=== PATIENT | female | born 1975 | race Hispanic/Latino ===

== ENCOUNTER → 2024-10-17 | Outpatient (CLI) | payer OTHER ==
--- NOTE | 2024-10-17 14:58 | HMCIMG ---
KNEE 3VWS RT HISTORY: Right knee pain COMPARISON: None TECHNIQUE: 3 images of right knee were obtained. FINDINGS: There is no acute displaced fracture or dislocation. Degenerative changes are seen. IMPRESSION: 1. Findings as described above.
== END | disposition home or self-care (01) ==
LOC: RAH 14:09
PROVIDERS: ATTEND Physician Assistant
DX: M17.11 Unilateral primary osteoarthritis, right knee (principal); M25.561 Pain in right knee
CPT/HCPCS: 73562

== ENCOUNTER 2024-12-14 11:31 | Emergency (ER) | payer OTHER, BC ==
[~2024-12-14] VITALS: Ht 165.1 cm; Wt 73.0 kg
--- NOTE | 2024-12-14 11:40 | ERN ---
ED Note History of Present Illness Stated Complaint: SENT BY Chief Complaint: Numbness Time Seen by MD: 11:37 Dictation: PATIENT IS A 49-YEAR-OLD FEMALE COMING IN TODAY WITH COMPLAINTS OF HAVING CHEST PAIN TWO WEEKS AGO THAT DID NOT RADIATE. SHE STATES HE LASTED FOR A DAY OR SO AND THEN IT RESOLVED THEN, STARTING YESTERDAY SHE STARTED HAVING NUMBNESS AND TINGLING TO HER BILATERAL LOWER EXTREMITIES. SHE SAW HER PRIMARY CARE DOCTOR TODAY WHO PERFORMED AN EKG TOLD HER IT WAS NORMAL. ADVISED HER TO COME TO THE EMERGENCY ROOM FOR FURTHER EVALUATION AND TREATMENT NIH IS 0, GAIT IS STEADY TO TRIAGE ROOM NO HEADACHES NO CHEST PAIN NO BACK PAIN NO FEVER NO CHILLS. Allergies: Coded Allergies: Sulfa (Sulfonamide Antibiotics) (Unverified Allergy, Unknown, 12/14/24) Past Medical History History: Not Applicable RN Note Reviewed/Agreed w/PFSH: Yes Review of System Dictation CONSTITUTIONAL: NEGATIVE EXCEPT FOR HPI HEAD/FACE: NEGATIVE EXCEPT FOR HPI EENT: NEGATIVE EXCEPT FOR HPI RESPIRATORY: NEGATIVE EXCEPT FOR HPI GASTROINTESTINAL/ABDOMINAL: NEGATIVE EXCEPT FOR HPI GENITOURINARY: NEGATIVE EXCEPT FOR HPI MUSCULOSKELETAL: NEGATIVE EXCEPT FOR HPI INTEGUMENTARY: NEGATIVE EXCEPT FOR HPI NEUROLOGICAL/PSYCH: NEGATIVE EXCEPT FOR HPI NUMBNESS AND TINGLING TO BILATERAL UPPER AND LOWER EXTREMITIES HEMATOLOGIC/LYMPHATIC: NEGATIVE EXCEPT FOR HPI ALL SYSTEMS NEGATIVE, EXCEPT NOTED ABOVE. 13 POINT REVIEW OF SYSTEMS ASSESSED AND ALL NEGATIVE EXCEPT FOR ABOVE. S Initial Vital Sign VS Vital Signs Date Time Temp Pulse Resp B/P (MAP) Pulse Ox O2 Delivery O2 Flow Rate FiO2 12/14/24 11:37 97.9 91 16 125/87 98 Room Air* 0 21 Physical Exam Dictation VITAL SIGNS REVIEWED GENERAL APPEARANCE: ALERT, ORIENTED X 3, NO ACUTE DISTRESS, WELL DEVELOPED, NOURISHED. PATIENT DENIES PAIN OR HEADACHE HEAD AND FACE: NON-TRAUMATIC. EYES: PERRL, PINK CONJUNCTIVAS, EYELID NO TRAUMA, ANTERIOR CHAMBER WITH ARCUS SENILIS. EARS: PINNAS INTACT AND NO SIGNS OF TRAUMA OR ERYTHEMA EAR CANALS CLEAR AND NO DISCHARGE TM NO ERYTHEMA NOSE: NO DISCHARGE, NO BLEEDING. OROPHARYNX: MOUTH NORMAL, TONGUE PINK, PHARYNX CLEAR,NO ERYTHEMA, TONSILS NO EXUDATES, NO ABSCESSES NOTED, MUCOUS MEMBRANE MOIST NECK: SUPPLE, NON-TENDER, NO THYROMEGALY, NO MASSES, NO JVD, NO BRUITS BREAST:DEFERRED CHEST:NO TENDERNESS, NO CREPITUS, NO PARADOXICAL MOVEMENT, NO RETRACTIONS LUNGS:CLEAR, WELL-VENTILATED, SYMMETRIC, NO RALES, NO WHEEZING, NO RHONCHI, NO STRIDOR, GOOD BREATH SOUNDS BILATERALLY HEART: REGULAR RATE, REGULAR RHYTHM, NO MURMUR, NO GALLOPS VASCULAR: NO PERIPHERAL EDEMA, ABDOMEN: SOFT, POSITIVE BOWEL SOUNDS, NONDISTENDED, NO GUARDING, NONTENDER, NO REBOUND, NO MASSES NO HEPATOMEGALY, NO SPLENOMEGALY, NO ARMSTRONG'S SIGN, NO HERNIAS. RECTAL: DEFERRED GENITAL: DEFERRED NEUROLOGICAL: NORMAL SPEECH, MOTOR FUNCTION INTACT, SENSORY FUNCTION INTACT NIH IS 0 MUSCULOSKELETAL: NECK NONTENDER, FULL RANGE OF MOTION, BACK NONTENDER, FULL RANGE OF MOTION, EXTREMITIES: NONTENDER, FULL RANGE OF MOTION SKIN: COLOR PINK, DRY, NO TURGOR, NO RASH, NO LACERATIONS, NO ABRASIONS, NO CONTUSIONS. LYMPHATIC: DEFERRED Results (Laboratory/Radiology) Laboratory/Radiology Laboratory Tests Test 12/14/24 12:06 White Blood Count 8.7 K/uL (4.8-10.8) Red Blood Count 4.61 MIL/uL (4.00-5.50) Hemoglobin 14.5 g/dL (12.0-16.0) Hematocrit 42.7 % (36-48) Mean Corpuscular Volume 92.6 fL (79-99) Mean Corpuscular Hemoglobin 31.5 pg (27.0-33.0) Mean Corpuscular Hemoglobin Concent 34.0 g/dL (32.0-36.0) Red Cell Distribution Width 12.6 % (11.0-15.5) Platelet Count 239 K/uL (130-400) Mean Platelet Volume 10.2 fL (7.5-10.5) Immature Granulocyte % (Auto) 0.3 % (0-1) Neutrophils (%) (Auto) 64.7 % (40.0-77.0) Lymphocytes (%) (Auto) 27.3 % (21.0-51.0) Monocytes (%) (Auto) 5.0 % (3.0-13.0) Eosinophils (%) (Auto) 2.4 % (0.0-8.0) Basophils (%) (Auto) 0.3 % (0.0-5.0) Neutrophils # (Auto) 5.6 K/uL (1.8-7.7) Lymphocytes # (Auto) 2.4 K/uL (1.0-4.8) Monocytes # (Auto) 0.4 K/uL (0.1-1.0) Eosinophils # (Auto) 0.21 K/uL (0.00-0.70) Basophils # (Auto) 0.03 K/uL (0.00-0.20) Absolute Immature Granulocyte (auto 0.03 K/uL (0-1) Nucleated Red Blood Cells 0.0 % (0.0-0.19) Urine Color YELLOW (YELLOW) Urine Appearance CLOUDY (CLEAR) H Urine pH 6.0 (5.0-8.0) Urine Specific Carson 1.029 (1.001-1.031) Urine Protein 20 mg/dL (NEGATIVE) H Urine Glucose (UA) NEGATIVE mg/dL (NEGATIVE) Urine Ketones NEGATIVE mg/dL (NEGATIVE) Urine Occult Blood NEGATIVE (NEGATIVE) Urine Nitrate NEGATIVE (NEGATIVE) Urine Bilirubin NEGATIVE mg/dL (NEGATIVE) Urine Urobilinogen 2.0 mg/dL (0.2-1.0) H Urine Leukocyte Esterase NEGATIVE James/uL Urine RBC None /HPF (0-1) Urine WBC 0-1 /HPF (0-1) Urine Squamous Epithelial Cells FEW /HPF (0-2) Urine Bacteria None /HPF (None Seen) Urine Other Casts 1 /LPF (None Seen) Sodium Level 139 mmol/L (136-145) Potassium Level 4.4 mmol/L (3.5-5.1) Chloride Level 103 mmol/L (101-111) Carbon Dioxide Level 32 mmol/L (21-32) Blood Urea Nitrogen 13 mg/dL (7-18) Creatinine 0.7 mg/dL (0.5-1.0) Glomerular Filtration Rate Calc 105 mL/min (>90) Random Glucose 110 mg/dL (70-105) H Total Calcium 9.3 mg/dL (8.5-10.1) Magnesium Level 2.10 mg/dL (1.80-2.40) Troponin I High Sensitivity < 4 ng/L (4-50) L CHEST 1VW REASON: CHEST PAIN COMPARISON: None FINDINGS: Single view of the chest was obtained. Lungs are clear. Heart size is normal. There is no pulmonary vascular congestion. Mediastinum and bony thorax appear unremarkable. IMPRESSION: 1. Normal single view chest x-ray. FINDINGS: There is normal appearing brain parenchyma. There are no focal mass lesions. There is is no evidence of intracranial hemorrhage or acute stroke. Ventricles and sulci appear normal. Posterior fossa and brainstem structures are unremarkable. Paranasal sinuses and remaining extracranial soft tissues appear normal as well. IMPRESSION: 1. Normal noncontrast CT brain. Labs Reviewed?: Yes EKG Comment: EKG SINUS RHYTHM/HEART RATE /AXIS NORMAL/NONSPECIFIC CHANGES LEADS V2 V3 ED Course ED Course Orders Procedure Category Date Status Time Ct Head/Brain W/O CT 12/14/24 Resulted Contrast 11:37 Cbc With Differential LAB 12/14/24 Complete 11:37 Chest 1vw RAD 12/14/24 Resulted 11:37 12 Lead Ekg Tracing- EKG 12/14/24 Complete Technical 11:37 Magnesium LAB 12/14/24 Complete 11:37 Troponin I High LAB 12/14/24 Complete Sensitivity 11:37 Urinalysis Profile LAB 12/14/24 Complete 11:37 Basic Metabolic Panel LAB 12/14/24 Complete 11:37 Vital Signs Date Time Temp Pulse Resp B/P (MAP) Pulse Ox O2 Delivery O2 Flow Rate FiO2 12/14/24 11:37 97.9 91 16 125/87 98 Room Air 0 12/14/24 11:37 97.9 91 16 125/87 98 Room Air* 0 21 1346, PATIENT REMAINS NEUROLOGICALLY INTACT CARDIAC WORKUP AND CT OF THE HEAD COMPLETELY NORMAL PATIENT DISCHARGED WITH DIAGNOSIS OF ATYPICAL CHEST PAIN AND PARESTHESIA TOLD TO SEE HER PRIMARY CARE DOCTOR FOR REFERRAL HEART Score Response (Comments) Value EKG: Repolarization changes 1 Age: 45-65yrs (+1) 1 Risk Factors: 1-2 risk factors (+1) 1 Initial Troponin: Normal limit (0) 0 Total 3 Medical Decision Making MDM MDM: DIFFERENTIAL DIAGNOSIS: ACS/AMI/ELECTROLYTE IMBALANCE/DEHYDRATION/PNEUMONIA/BRONCHITIS/CENTRAL NERVOUS SYSTEM LESION RATIONALE: TESTS CONSIDERED AND ORDERED SECONDARY TO SHARED DECISION MAKING INCLUDE: RADIOLOGY/LABS/EKG PREVIOUS OUTSIDE RECORDS REVIEWED: OLD ER VISITS. RISK OF COMPLICATION AND/OR MORBIDITY OR MORTALITY OF PATIENT MANAGEMENT: NONE MEDICATIONS-PER MEDICATION RECONCILIATION NEED FOR HOSPITALIZATION: PATIENT DOES NOT MEET CRITERIA FOR HOSPITALIZATION. NO NEED FOR EMERGENCY MAJOR/MINOR SURGERY: NO THERE ARE NO SOCIAL CONCERNS WITH THIS PATIENT. PRESCRIPTION DRUG MANAGEMENT NONE PRESCRIPTIONS WILL INCLUDE SYMPTOMATIC CARE PATIENT'S PRIOR EXTERNAL MEDICAL RECORDS FROM OTHER ER VISITS WERE REVIEWED BY ME INDICATED. PRIOR TESTING AND RESULTS FROM PREVIOUS VISITS WERE REVIEWED. PRIOR TESTS WERE TAKEN INTO ACCOUNT WITH MEDICAL DECISION MAKING AND RESOURCE UTILIZATION, INDEPENDENT HISTORIAN/HISTORIANS WERE USED TO OBTAIN COMPLETE MEDICAL HISTORY. I INDEPENDENTLY INTERPRETED THE TEST THAT WERE PERFORMED, RESULTS WERE REVIEWED BY ME AND CONSIDERED FINDINGS ON RADIOLOGY IF ORDERED. MEDICAL MANAGEMENT AND EXAMINATION INTERPRETATION DISCUSSIONS WERE HAD BY ME W ITH OTHER QUALIFIED HEALTHCARE PROFESSIONALS INDICATED FOR THE PATIENT'S CARE. DX & DISP Disposition: Discharge Departure Impression: Primary Impression: Atypical chest pain Additional Impressions: Paresthesia of both lower extremities, Paresthesia and pain of both upper extremities Condition: Stable Additional Instructions: FOLLOW-UP WITH PRIMARY CARE PROVIDER IN 1 TO 2 DAYS. TAKE MEDICATIONS DIRECTED HERE IN THE EMERGENCY ROOM. OKAY TO CONTINUE HOME MEDICATIONS UNLESS OTHERWISE DISCUSSED DURING YOUR VISIT IN THE EMERGENCY ROOM TODAY. RETURN TO YOUR NEAREST EMERGENCY ROOM IF SYMPTOMS WORSEN OR IF THERE IS NO IMPROVEMENT. CALL 911 IF YOU NEED IMMEDIATE ASSISTANCE. TAKE TYLENOL OR MOTRIN [id number] NEEDED AND IF NO CONTRAINDICATIONS ARE PRESENT. INCREASE ORAL HYDRATION. A WOUND CULTURE OR URINE CULTURE WAS ORDERED HERE IN THE LOCATED WITHIN [facility] ROOM DEPARTMENT PLEASE FOLLOW-UP WITH PRIMARY CARE PROVIDER AND ADVISE THEM TO GET REPEAT PORTS FROM OUR FACILITY. IF YOU HAD ANY DOMINIK WRAP/SPLINTS THAT WERE APPLIED HERE, PLEASE DO NOT REMOVE THEM UNTIL YOU SEE YOUR PRIMARY CARE OR SPECIALTY. CALL NEUROLOGIST FOR AN APPOINTMENT IN THE NEXT 1-2 DAYS NEEDED OR SEE YOUR PRIMARY CARE DOCTOR FOR REFERRAL. Referrals: PEYTON FREGOSO MD (PCP) DONOVAN TRIPATHI MD Time of Disposition: 13:49 I have reviewed the case, and I agree with, Diagnosis and Plan MYLES WILLINGHAM NP Dec 14, 2024 11:40
--- NOTE | 2024-12-14 11:47 | EKG ---
[facility] Test Date: 2024-12-14 Test Time: 11:44:24 Pat Name: ANTIONETTE LEI Department: [facility] Room: Gender: F Zyglo Inspector: [id number] : 1975 Requested By: MYLES WILLINGHAM Order Number: [id number] Reading MD: Terell Baxter Measurements Intervals Downs Rate: 81 P: 21 DE: 163 QRS: 20 QRSD: 98 T: 24 QT: 370 QTc: 430 Interpretive Statements Sinus rhythm Probable anterior infarct, age indeterminate No previous ECG available for comparison Electronically Signed On 12-15-2024 17:14:53 [employer] MANAGER by Terell Baxter Please click the below link to view image of tracing.
[2024-12-14 12:20] LABS: BASOPHILS # (AUTO) 0.03 K/uL (0.00-0.20); BASOPHILS % (AUTO) 0.3 % (0.0-5.0); EOSINOPHILS # (AUTO) 0.21 K/uL (0.00-0.70); EOSINOPHILS % (AUTO) 2.4 % (0.0-8.0); HEMATOCRIT 42.7 % (36-48); IMMATURE GRANULOCYTE ABSOLUTE 0.03 K/uL (0-1); LYMPHOCYTES # (AUTO) 2.4 K/uL (1.0-4.8); LYMPHOCYTES % (AUTO) 27.3 % (21.0-51.0); MEAN CORPUSCULAR HEMOGLOBIN 31.5 pg (27.0-33.0); MEAN CORPUSCULAR VOLUME 92.6 fL (79-99); MONOCYTES # (AUTO) 0.4 K/uL (0.1-1.0); NEUTROPHILS # (AUTO) 5.6 K/uL (1.8-7.7); NEUTROPHILS % (AUTO) 64.7 % (40.0-77.0); PLATELET COUNT (AUTO) 239 K/uL (130-400); RED BLOOD CELL COUNT(AUTO) 4.61 MIL/uL (4.00-5.50); RED CELL DISTRIBUTION WIDTH 12.6 % (11.0-15.5); WHITE BLOOD COUNT (AUTO) 8.7 K/uL (4.8-10.8)
--- NOTE | 2024-12-14 12:23 | HMCIMG ---
CHEST 1VW REASON: CHEST PAIN COMPARISON: None FINDINGS: Single view of the chest was obtained. Lungs are clear. Heart size is normal. There is no pulmonary vascular congestion. Mediastinum and bony thorax appear unremarkable. IMPRESSION: 1. Normal single view chest x-ray.
[2024-12-14 12:28] LABS: CREATININE 0.7 mg/dL (0.5-1.0); MAGNESIUM 2.1 mg/dL (1.80-2.40); POTASSIUM 4.4 mmol/L (3.5-5.1)
[2024-12-14 12:35] LABS: APPEARANCE,URINE CLOUDY (CLEAR); BILIRUBIN,URINE NEGATIVE (NEGATIVE); COLOR,URINE YELLOW (YELLOW); GLUCOSE, URINE (UA) NEGATIVE (NEGATIVE); KETONES,URINE NEGATIVE (NEGATIVE); LEUKOCYTE ESTERASE ,URINE NEGATIVE Leu/uL (NEGATIVE); NITRATE,URINE NEGATIVE (NEGATIVE); OCCULT BLOOD,URINE NEGATIVE (NEGATIVE); PROTEIN,URINE 20 mg/dL (NEGATIVE)
[2024-12-14 12:53] LABS: ADD UA MICROSCOPIC YES
[2024-12-14 12:55] VITALS: BP 113/73; PULSE 82; RESP 16; TEMP 97.9; O2SAT 98
[2024-12-14 12:58] LABS: MUCUS,URINE MANY LPF (None Seen); OTHER CASTS, URINE 1 /LPF (None Seen); SQUAMOUS EPITHELIAL CELL,UR FEW /HPF (0-2); WBC,URINE 0-1 /HPF (0-1)
--- NOTE | 2024-12-14 13:46 | HMCIMG ---
Exam: NONCONTRAST CT BRAIN REASON: BILATERAL UPPER LOWER EXTREMITY NUMBNESS TINGLING. COMPARISON: None. TECHNIQUE: Images are obtained from vertex to the skull base. The exam was performed without IV contrast. FINDINGS: There is normal appearing brain parenchyma. There are no focal mass lesions. There is is no evidence of intracranial hemorrhage or acute stroke. Ventricles and sulci appear normal. Posterior fossa and brainstem structures are unremarkable. Paranasal sinuses and remaining extracranial soft tissues appear normal as well. IMPRESSION: 1. Normal noncontrast CT brain. CT was performed with one or more following dose reduction techniques: automated exposure control, adjustment of the mA and kv according to patient's size, or use of a iterative reconstruction technique.
== END 2024-12-14 14:00 | disposition home or self-care (01) ==
LOC: EDH 11:31
DX: R07.89 Other chest pain (principal); R20.2 Paresthesia of skin; M79.602 Pain in left arm; M79.601 Pain in right arm; Z88.2 Allergy status to sulfonamides
CPT/HCPCS: 36415; 70450; 71045; 80048; 81001; 83735; 84484; 85025; 93005; 99285

== ENCOUNTER → 2025-04-18 | Outpatient (CLI) | payer OTHER ==
--- NOTE | 2025-04-18 11:00 | HMCIMG ---
Exam Type: CHEST 2VWS Clinical Information: CHRONIC COUGH Comparison: None Findings: The lungs are clear of infiltrates. The heart is normal in size. The bony and soft tissue structures of the chest are unremarkable. Impression: Clear lungs.
== END | disposition home or self-care (01) ==
LOC: LAB 10:16
PROVIDERS: ATTEND Physician Assistant Medical
DX: R05.3 Chronic cough (principal)
CPT/HCPCS: 71046

== ENCOUNTER → 2025-09-19 | Outpatient (CLI) | payer OTHER ==
--- NOTE | 2025-09-19 11:21 | HMCIMG ---
Renal and Pelvic Ultrasound Technique: Real-time grayscale ultrasound of both kidneys and urinary bladder was performed, with post-void imaging obtained. Clinical Information: Hematuria. Comparison: None. Findings: Right Kidney: Measures 9.8 ??? 5.7 ??? 4.5 cm. Normal cortical echogenicity and preserved corticomedullary differentiation. No hydronephrosis, calculi, or focal lesions identified. Left Kidney: Measures 10.7 ??? 4.2 ??? 4.0 cm. Normal cortical echogenicity and corticomedullary differentiation are maintained. A simple cortical cyst is noted in the lower pole, measuring 1.7 ??? 2.0 ??? 1.7 cm, without internal septations, calcifications, or solid components. No hydronephrosis or renal calculi identified. Urinary Bladder: Bladder is normal in contour with a smooth wall measuring 4.2 mm in thickness. Lumen is anechoic without internal debris or mass. Pre-void volume: 168 cc Post-void residual volume: 12 cc Peritoneal Cavity: No free fluid identified. Impression: 1. Normal-sized kidneys with preserved cortical echogenicity and corticomedullary differentiation. No hydronephrosis or nephrolithiasis. 2. Simple cortical cyst in the lower pole of the left kidney (1.7 ??? 2.0 ??? 1.7 cm), without internal septations or solid components. 3. Normal urinary bladder. Minimal post-void residual (12 cc), within normal limits. 4. No free intraperitoneal fluid. /Manuel
== END | disposition home or self-care (01) ==
LOC: RAH 07:33
PROVIDERS: ATTEND Family Medicine
DX: N28.1 Cyst of kidney, acquired (principal); R31.9 Hematuria, unspecified
CPT/HCPCS: 76770

== ENCOUNTER 2025-10-28 15:37 | Emergency (ER) | payer OTHER ==
[~2025-10-28] VITALS: Ht 167.6 cm; Wt 76.2 kg
[2025-10-28] MEDS ORDERED: IOHEXOL-350 75 ML VIAL IV ONE (15:43)
[2025-10-28 16:20] LABS: APPEARANCE,URINE CLEAR (CLEAR); GLUCOSE, URINE (UA) NEGATIVE (NEGATIVE); LEUKOCYTE ESTERASE ,URINE NEGATIVE Leu/uL (NEGATIVE); NITRATE,URINE NEGATIVE (NEGATIVE); OCCULT BLOOD,URINE NEGATIVE (NEGATIVE)
[2025-10-28 16:22] LABS: ADD UA MICROSCOPIC NO
[2025-10-28 16:24] LABS: IMMATURE GRANULOCYTE ABSOLUTE 0.03 K/uL (0-1); NUCLEATED RED BLOOD CELLS 0.0 % (0.0-0.19); PLATELET COUNT (AUTO) 304 K/uL (130-400); RED BLOOD CELL COUNT(AUTO) 4.80 MIL/uL (4.00-5.50); RED CELL DISTRIBUTION WIDTH 13.4 % (11.0-15.5); WHITE BLOOD COUNT (AUTO) 8.9 K/uL (4.8-10.8)
[2025-10-28 17:00] LABS: CREATININE 0.7 mg/dL (0.5-1.0); GLOMERULAR FILTR. RATE CALC 104.0 mL/min (>90); GLUCOSE,RANDOM 136.0 mg/dL (70-105); SODIUM SERUM 140.0 mmol/L (136-145); UREA NITROGEN, BLOOD 8.0 mg/dL (7-18)
--- NOTE | 2025-10-28 17:25 | NUR ---
ASSUMED CARE OF PATIENT.
[2025-10-28] MEDS: 0.9%NACL 1000ML 1,000 ML IV STA (18:00)
--- NOTE | 2025-10-28 19:20 | NUR ---
REPORT GIVEN TO Alek CASSIDY RN FOR CONTINUITY OF PATIENT CARE.
--- NOTE | 2025-10-28 19:30 | HMCIMG ---
EXAM: CT Abdomen and Pelvis with IV contrast CLINICAL HISTORY: Patient presents with right lower quadrant pain. TECHNIQUE: Axial computed tomography images of the abdomen and pelvis with intravenous contrast. CONTRAST: Administered intravenously. COMPARISON: None provided. FINDINGS: LUNG BASES: The lung bases appear clear. No pleural effusions are seen. LIVER: Unremarkable. GALLBLADDER AND BILE DUCTS: The gallbladder is surgically absent. No radioopaque gallstones are seen. No biliary ductal dilatation is evident. PANCREAS: Unremarkable. SPLEEN: Unremarkable. ADRENAL GLANDS: Subcentimeter right adrenal nodule is statistically most likely to reflect an adenoma; however, this may be further characterized with MR imaging with adrenal protocol. KIDNEYS, URETERS, AND BLADDER: The kidneys appear within normal limits except for a 2 cm cyst in the lower pole of the left kidney. There is no hydronephrosis or hydroureter. No urinary calculi are seen. STOMACH AND BOWEL: The stomach and bowel demonstrate mild constipation. No evidence of bowel obstruction. No evidence suggesting enteritis or colitis. APPENDIX: No CT imaging features of acute appendicitis. PERITONEUM: No free fluid. No free air. LYMPH NODES: No lymphadenopathy is evident. REPRODUCTIVE: The uterus is surgically absent. Unremarkable as otherwise visualized. VASCULATURE: No evidence of abdominal aortic aneurysm. BONES: No aggressive appearing osseous lesion. No acute osseous pathology evident. IMPRESSION: 1. No acute intraabdominal or pelvic pathology. Please see above for details and recommendations. /[place]
--- NOTE | 2025-10-28 20:01 | ERN ---
ED Note History of Present Illness Stated Complaint: RLQ PAIN Chief Complaint: Abdominal Pain Time Seen by MD: 15:40 Time Seen by Midlevel: 15:44 Dictation: 50-year-old female coming in with complaints of right lower quadrant pain she says ongoing intermittently for the last six months. Patient unable to follow up with the PCP due to she was caring for her father and then her grandkids. Patient denies having any nausea or vomiting or fevers. Patient states she has been taking around the clock ibuprofen. Denies any urinary symptoms. Denies any chest pain or chest discomfort. Allergies: Coded Allergies: Sulfa (Sulfonamide Antibiotics) (Unverified Allergy, Unknown, 12/14/24) Past Medical History Past Medical History: Diabetes-Type II Additional Past Medical Hx: NEUROPATHY Surgical History: Hysterectomy, Cholecystectomy History: Not Applicable Review of System Dictation Constitutional: Negative for fever,chills, and weight loss Eyes: Negative for injury, pain,redness, and discharge ENT: Negative for injury,pain or swelling Cardiovascular: Negative for chest pain, palpitations, and edema Respiratory: Negative for shortness of breath, cough, and wheezing, Abdomen/GI: Complaining of right lower quadrant pain Back: Negative for injury and pain : Negative for injury, bleeding and discharge MS/Extremity: Negative for injury and deformity Skin: Negative for rash, and discoloration Neuro: Negative for headache, weakness, numbness, tingling, and seizure Psych: Negative for suicide ideation, homicidal ideation, and hallucinations Review of Systems: was completed Initial Vital Sign VS Vital Signs Date Time Temp Pulse Resp B/P (MAP) Pulse Ox O2 Delivery O2 Flow Rate FiO2 10/28/25 15:39 97.9 82 16 138/88 97 Room Air 0 10/28/25 17:25 21 Physical Exam Dictation General: awake, alert, NAD Head/Face: Normocephalic, atraumatic Eyes: PERRL, EOMI, vision at baseline ENT: oral cavity clear, TMs clear, no signs of infection Neck: Trachea midline, supple, no nuchal rigidity Cardiovascular: RRR, normal S1/S2, No MRGs, no JVD Respiratory: CTAB, no respiratory distress, No rales or wheezes Abdomen: Soft, non-tender, non-distended, normal bowel sounds, no guarding or rebound. Skin: Warm, dry, normal turgor, no rash MS/Extremity: Pulses equal, no cyanosis, neurovascular intact, FROM Neuro: COAx4, GCS 15, strength 5/5, CN 2-12 intact, normal cerebellar exam, normal gait, Psych: Normal behavior, mood, and affect normal Results (Laboratory/Radiology) Laboratory/Radiology Laboratory Tests Test 10/28/25 15:47 10/28/25 16:13 Urine Color COLORLESS (YELLOW) Urine Appearance CLEAR (CLEAR) Urine pH 5.5 (5.0-8.0) Urine Specific [place] 1.003 (1.001-1.031) Urine Protein NEGATIVE mg/dL (NEGATIVE) Urine Glucose (UA) NEGATIVE mg/dL (NEGATIVE) Urine Ketones NEGATIVE mg/dL (NEGATIVE) Urine Occult Blood NEGATIVE (NEGATIVE) Urine Nitrate NEGATIVE (NEGATIVE) Urine Bilirubin NEGATIVE mg/dL (NEGATIVE) Urine Urobilinogen 0.2 mg/dL (0.2-1.0) Urine Leukocyte Esterase NEGATIVE James/uL White Blood Count 8.9 K/uL (4.8-10.8) Red Blood Count 4.80 MIL/uL (4.00-5.50) Hemoglobin 14.7 g/dL (12.0-16.0) Hematocrit 45.6 % (36-48) Mean Corpuscular Volume 95.0 fL (79-99) Mean Corpuscular Hemoglobin 30.6 pg (27.0-33.0) Mean Corpuscular Hemoglobin Concent 32.2 g/dL (32.0-36.0) Red Cell Distribution Width 13.4 % (11.0-15.5) Platelet Count 304 K/uL (130-400) Mean Platelet Volume 9.9 fL (7.5-10.5) Immature Granulocyte % (Auto) 0.3 % (0-1) Neutrophils (%) (Auto) 59.7 % (40.0-77.0) Lymphocytes (%) (Auto) 31.5 % (21.0-51.0) Monocytes (%) (Auto) 6.1 % (3.0-13.0) Eosinophils (%) (Auto) 1.8 % (0.0-8.0) Basophils (%) (Auto) 0.6 % (0.0-5.0) Neutrophils # (Auto) 5.3 K/uL (1.8-7.7) Lymphocytes # (Auto) 2.8 K/uL (1.0-4.8) Monocytes # (Auto) 0.5 K/uL (0.1-1.0) Eosinophils # (Auto) 0.16 K/uL (0.00-0.70) Basophils # (Auto) 0.05 K/uL (0.00-0.20) Absolute Immature Granulocyte (auto 0.03 K/uL (0-1) Nucleated Red Blood Cells 0.0 % (0.0-0.19) Sodium Level 140 mmol/L (136-145) Potassium Level 3.8 mmol/L (3.5-5.1) Chloride Level 102 mmol/L (101-111) Carbon Dioxide Level 30 mmol/L (21-32) Blood Urea Nitrogen 8 mg/dL (7-18) Creatinine 0.7 mg/dL (0.5-1.0) Glomerular Filtration Rate Calc 104 mL/min (>90) Random Glucose 136 mg/dL (70-105) H Total Calcium 9.5 mg/dL (8.5-10.1) Labs Reviewed?: Yes CT Scan Comment: [address] [address] [place] [address] IMAGING REPORT Signed PATIENT: ANTIONETTE LEI MR#: [id number] : 1975 SEX: F AGE: 50 LOCATION: [facility] ORDER [id number] STATUS: [facility] REPORT#: [id number] SERVICE [id number] REASON: rlq pain ORDERING PHYSICIAN: ALYCIA YAÑEZ CNP PROCEDURE: ABD PEL W - CT ABDOMEN/PELVIS W/CONTRAST EXAM: CT Abdomen and Pelvis with IV contrast CLINICAL HISTORY: Patient presents with right lower quadrant pain. TECHNIQUE: Axial computed tomography images of the abdomen and pelvis with intravenous contrast. CONTRAST: Administered intravenously. COMPARISON: None provided. FINDINGS: LUNG BASES: The lung bases appear clear. No pleural effusions are seen. LIVER: Unremarkable. GALLBLADDER AND BILE DUCTS: The gallbladder is surgically absent. No radioopaque gallstones are seen. No biliary ductal dilatation is evident. PANCREAS: Unremarkable. SPLEEN: Unremarkable. ADRENAL GLANDS: Subcentimeter right adrenal nodule is statistically most likely to reflect an adenoma; however, this may be further characterized with MR imaging with adrenal protocol. KIDNEYS, URETERS, AND BLADDER: The kidneys appear within normal limits except for a 2 cm cyst in the lower pole of the left kidney. There is no hydronephrosis or hydroureter. No urinary calculi are seen. STOMACH AND BOWEL: The stomach and bowel demonstrate mild constipation. No evidence of bowel obstruction. No evidence suggesting enteritis or colitis. APPENDIX: No CT imaging features of acute appendicitis. PERITONEUM: No free fluid. No free air. LYMPH NODES: No lymphadenopathy is evident. REPRODUCTIVE: The uterus is surgically absent. Unremarkable as otherwise visualized. VASCULATURE: No evidence of abdominal aortic aneurysm. BONES: No aggressive appearing osseous lesion. No acute osseous pathology evident. IMPRESSION: 1. No acute intraabdominal or pelvic pathology. Please see above for details and recommendations. /[place] DICTATED BY: LIO GUALLPA Jr., MD DATE: 10/28/252029 ELECTRONICALLY SIGNED BY: LIO GUALLPA Jr., MD DATE: 10/28/252029 ED Course ED Course Orders Procedure Category Date Status Time Cbc With Differential LAB 10/28/25 Complete 15:43 Basic Metabolic Panel LAB 10/28/25 Complete 15:43 Urinalysis Profile LAB 10/28/25 Complete 15:43 Ct Abdomen/Pelvis CT 10/28/25 Resulted W/Contrast 15:43 0.9%Nacl 1000ml (Ns PHA 10/28/25 Complete 1000ml) 15:43 Ondansetron 4mg Inj PHA 10/28/25 Complete (Zofran 4mg Inj) 16:00 Ketorolac PHA 10/28/25 Complete Tromethamine 15mg/Ml 16:00 Current Medications Medications (Trade) Dose Ordered Sig/Jourdan Route PRN Reason Start Time Stop Time Status Last Admin Dose Admin Ketorolac Tromethamine (toRADol) 15 mg ONCE ONCE IV 10/28/25 16:00 10/28/25 16:01 DC 10/28/25 18:00 Ondansetron HCl (zoFRAN 4MG INJ) 4 mg ONCE ONCE IVP 10/28/25 16:00 10/28/25 16:01 DC 10/28/25 17:59 Sodium Chloride 1,000 ml @ 1,000 mls/hr Q1H STAT IV 10/28/25 15:43 10/28/25 16:42 DC 10/28/25 18:00 Vital Signs Date Time Temp Pulse Resp B/P (MAP) Pulse Ox O2 Delivery O2 Flow Rate FiO2 10/28/25 18:48 97.7 80 18 133/84 97 Room Air* 0 21 10/28/25 17:25 97.7 80 18 97 Room Air* 0 21 10/28/25 15:39 97.9 82 16 138/88 97 Room Air 0 Medical Decision Making MDM MDM: 50-year-old female coming in with complaints of right lower quadrant pain she says ongoing intermittently for the last six months. Patient unable to follow up with the PCP due to she was caring for her father and then her grandkids. Patient denies having any nausea or vomiting or fevers. Patient states she has been taking around the clock ibuprofen. Denies any urinary symptoms. Denies any chest pain or chest discomfort. All lab work is unremarkable. CT scan shows no acute evidence of appendicitis periods only shows incidental findings of an adrenal adenoma possibly an a cysts in the kidney pole. Patient was notified of these incidental findings and told her she needs to follow up with PCP for further evaluation. Patient will be provided a copy of the CT scan report. Also educated she needs to follow up with a possible GI for her recurrent and intermittent right lower quadrant pain. Educated on red flag symptoms of when to return back to the ER. Patient verbalized understanding, answered all questions. Differential diagnosis: Sinusitis, UTI Rationale: Tests considered and ordered secondary to shared decision making include: Previous outside records reviewed: Old ER visits. Risk of complication and/or morbidity or mortality of patient management: None Medications-Per medication reconciliation Need for hospitalization: Patient does not meet criteria for hospitalization. Need for emergency major/minor surgery: No There are no social concerns with this patient. Prescription drug management Prescriptions will include symptomatic care Patient's prior external medical records from other ER visits were reviewed by me as indicated. Prior testing and results from previous visits were reviewed. Prior tests were taken into account with medical decision making and resource utilization, independent historian/historians were used to obtain complete medical history. I independently interpreted the test that were performed, results were reviewed by me and considered findings on radiology if ordered. Medical management and examination interpretation discussions were had by me with other qualified healthcare professionals as indicated for the patient's care. DX & DISP Disposition: Discharge Departure Impression: Primary Impression: Abdominal pain Condition: Stable Additional Instructions: Follow up with PCP and or with the business education teacher for your recurrent right lower quadrant abdominal pain. Follow up with your PCP regarding the incidental findings on your CT scan. Return to the hospital if you develop any fevers, nausea or vomiting diarrhea. Referrals: AMOL PYLE (PCP) Time of Disposition: 20:00 I have reviewed the case, and I agree with, Diagnosis and Plan ALYCIA YAÑEZ [facility] Oct 28, 2025 20:01
[2025-10-28 20:24] VITALS: BP 116/73; PULSE 70; RESP 18; TEMP 98.3; O2SAT 98
== END 2025-10-28 20:26 | disposition home or self-care (01) ==
LOC: EDH 15:37
DX: R10.31 Right lower quadrant pain (principal); E11.40 Type 2 diabetes mellitus with diabetic neuropathy, unspecified; Z88.2 Allergy status to sulfonamides; Z90.49 Acquired absence of other specified parts of digestive tract; Z90.710 Acquired absence of both cervix and uterus
CPT/HCPCS: 99285; 74177; 96374; 96361; 96375; 80048; 85025; 81003; 36415; J1885; J7030; J2405; Q9967